=== PATIENT | male | born 1980 | race Caucasian/White ===

== ENCOUNTER 2017-12-22 13:34 | Emergency (ER) | payer MEDICAID ==
[~2017-12-22] VITALS: Ht 193 cm; Wt 115.7 kg
[2017-12-22 13:45] VITALS: BP 132/99
[2017-12-22] MEDS ORDERED: PENICILLIN G BENZ 1200000 UNITS/2 ML SYRG IM ONE (17:00)
== END 2017-12-22 17:06 | disposition home or self-care (01) ==
LOC: ER 13:42
DX: J02.0 Streptococcal pharyngitis (principal)
CPT/HCPCS: 96372; 99283; J0561